=== PATIENT | female | born 1985 | race Caucasian/White ===

== ENCOUNTER 2019-05-04 15:38 | Emergency (ER) | payer MEDICAID ==
[~2019-05-04] VITALS: Ht 162.6 cm; Wt 60.3 kg
[2019-05-04 15:54] VITALS: BP_SYST 154
[2019-05-04 16:46] LABS: BASOPHILS % (AUTO) 0.5 % (0.0-2.0); EOSINOPHILS % (AUTO) 0.5 % (0.0-4.0); HEMOGLOBIN 11.2 g/dL (12.0-16.0); LYMPHOCYTES # (AUTO) 1.2 K/uL (1.0-5.5); LYMPHOCYTES % (AUTO) 18.8 % (20.5-51.5); MEAN CORPUSCULAR HEMOGLOBIN 27 pg (27-31); MEAN CORPUSCULAR HGB CONC 32 % (32-36); MEAN CORPUSCULAR VOLUME 83 fL (79.0-98.0); MONOCYTES # (AUTO) 0.5 K/uL (0.0-1.0); MONOCYTES % (AUTO) 7.4 % (1.7-9.3); NEUTROPHILS # (AUTO) 4.7 K/uL (1.8-7.7); NEUTROPHILS % (AUTO) 72.8 % (40.0-70.0); PLATELET COUNT (AUTO) 384 K/uL (130-430); RED BLOOD CELL COUNT(AUTO) 4.23 MIL/uL (4.2-6.2); RED CELL DISTRIBUTION WIDTH 16.6 % (9.0-15.0); WHITE BLOOD COUNT (AUTO) 6.4 K/uL (4.8-10.8)
[2019-05-04 17:01] LABS: CALCIUM 9.2 mg/dL (8.4-11.0); CREATININE 0.76 mg/dL (0.55-1.30); POTASSIUM 3.6 mmol/L (3.5-5.1)
[2019-05-04 17:05] LABS: ALBUMIN 3.8 g/dL (3.4-4.8); TOTAL BILIRUBIN 0.4 mg/dL (0.0-1.0)
[2019-05-04 17:58] LABS: BILIRUBIN,URINE NEGATIVE (NEGATIVE); BLOOD, URINE 3+ (NEGATIVE); CLARITY/URINE HAZY (CLEAR); COLOR,URINE YELLOW (YELLOW); GLUCOSE,URINE NEGATIVE (NEGATIVE); KETONES,URINE NEGATIVE (NEGATIVE); LEUKOCYTE ESTERASE ,URINE TRACE (NEGATIVE); NITRITE, URINE NEGATIVE (NEGATIVE); PH,URINE 5.5 (5.0-8.0); PROTEIN URINE 2+ (NEGATIVE); UROBILINOGEN,URINE 0.2 (0.2-1.0)
[2019-05-04 18:14] LABS: BACTERIA,URINE FEW /HPF (None Seen); MUCUS,URINE 2+ /LPF (None Seen); YEAST,URINE Moderate /HPF (None Seen)
[2019-05-04] MEDS ORDERED: KETOROLAC TROMETHAMINE 30 MG VIAL IM ONE (18:15)
[2019-05-04 18:36] VITALS: BP_SYST 144
[2019-05-06 21:18] LABS: CHLAMYDIA TRACHOMATIS NAA Negative (Negative); NEISSERIA GONORRHOEAE NAA Negative (Negative)
== END 2019-05-04 18:36 | disposition home or self-care (01) ==
LOC: SED 15:38
DX: N39.0 Urinary tract infection, site not specified (principal); I10 Essential (primary) hypertension
CPT/HCPCS: 36415; 80053; 81000; 83605; 83690; 85025; 87040; 87086; 87491; 87591; 96372; 99283; J1885

== ENCOUNTER 2019-06-16 09:14 | Emergency (ER) | payer MEDICAID ==
[~2019-06-16] VITALS: Ht 162.6 cm; Wt 60.8 kg
[2019-06-16 09:25] VITALS: BP_SYST 145
--- NOTE | 2019-06-16 09:31 | NUR ---
Patient to ER bed 4 to gown for evaluation. Side rails up. Report given to Layo CHAMBERS.
--- NOTE | 2019-06-16 09:43 | NUR ---
33 year old female pt drove self to er, ambulated to bed. pt states she has had reoccurence of small bump on rlq of abdomen. pt states the occurence of the bump was post liposuction surgery in march of this year. pt states no pain, only slight tenderness or discomfort on palpation. pt denies cp, sob, n/v, dizziness, blurry vision, fever, discharge, redness. pt has no other complaint at this time. will continue to monitor.
--- NOTE | 2019-06-16 09:50 | NUR ---
ER Dr. Trevizo at bedside examining patient.
[2019-06-16 10:27] VITALS: BP_SYST 139
--- NOTE | 2019-06-16 10:27 | NUR ---
Patient given written and verbal discharge instructions and verbalizes understanding. ER MD discussed with patient the results and treatment provided. Patient in stable condition. ID arm band removed. No Rx given. Patient educated on pain management and to follow up with PMD. Pain Scale 0/10. Opportunity for questions provided and answered. Medication side effect fact sheet provided.
== END 2019-06-16 10:21 | disposition home or self-care (01) ==
LOC: SED 09:14
DX: R10.31 Right lower quadrant pain (principal); I10 Essential (primary) hypertension
CPT/HCPCS: 99281; 99284

== ENCOUNTER 2019-10-08 08:07 | Emergency (ER) | payer MEDICAID ==
[~2019-10-08] VITALS: Ht 162.6 cm; Wt 60.8 kg
--- NOTE | 2019-10-08 08:20 | NUR ---
Dr. Castaneda @ bedside for examination.
[2019-10-08 08:22] VITALS: BP_SYST 157
--- NOTE | 2019-10-08 08:25 | NUR ---
Patient to ER bed 07 to gown for evaluation. Side rails up.
--- NOTE | 2019-10-08 08:33 | NUR ---
Patient c/o of cough and congestion that has been ongoing x 4 months. Patient stated she went to [facility] for a check-up and was informed it was acid reflux and advised to change diet. Patient still is complaining of cough @ this time and she stated she notices green phlegm accompanied with it. Patient also complains of left neck pain when she swallows. Patient in no signs of distress @ this time.
[2019-10-08 10:20] VITALS: BP_SYST 157
--- NOTE | 2019-10-08 10:20 | NUR ---
Patient given written and verbal discharge instructions and verbalizes understanding. ER MD discussed with patient the results and treatment provided. Patient in stable condition. ID arm band removed. Rx of claritin and protnix given. Patient educated on pain management and to follow up with PMD. Pain Scale 2/10.Opportunity for questions provided and answered. Medication side effect fact sheet provided.
== END 2019-10-08 10:20 | disposition home or self-care (01) ==
LOC: SED 08:07
DX: K21.9 Gastro-esophageal reflux disease without esophagitis (principal); J30.9 Allergic rhinitis, unspecified; I10 Essential (primary) hypertension; R05 Cough
CPT/HCPCS: 36415; 86710; 99283

== ENCOUNTER 2024-01-07 07:34 | Emergency (ER) | payer MEDICAID ==
[~2024-01-07] VITALS: Ht 162.6 cm; Wt 61.2 kg
[~2024-01-07 07:34] MED LIST: IBUP-1969 PO
[2024-01-07 07:49] VITALS: BP_SYST 158; PULSE 103; RESP 18; TEMP 97.5; O2SAT 100
[2024-01-07] MEDS: LORazepam 1 MG TABLET PO ONE (08:29)
[2024-01-07] MEDS ORDERED: LORA-259 PO (09:49)
[2024-01-07 09:51] VITALS: BP_SYST 125; PULSE 88; RESP 17; TEMP 98.1; O2SAT 98
== END 2024-01-07 09:53 | disposition home or self-care (01) ==
LOC: SED 07:34
DX: R29.0 Tetany (principal); F45.8 Other somatoform disorders; F41.9 Anxiety disorder, unspecified; I10 Essential (primary) hypertension; Z79.899 Other long term (current) drug therapy
CPT/HCPCS: 99283